=== PATIENT | male | born 1935 | race Caucasian/White ===

== ENCOUNTER → 2017-11-06 | Outpatient (CLI) | payer OTHER | END | disposition home or self-care (01) | LOC: PCVCIMAG 07:47 | DX: I10 Essential (primary) hypertension (principal); R00.2 Palpitations; C64.2 Malignant neoplasm of left kidney, except renal pelvis; E04.2 Nontoxic multinodular goiter; N32.89 Other specified disorders of bladder; Z87.891 Personal history of nicotine dependence; Z79.82 Long term (current) use of aspirin; Z79.899 Other long term (current) drug therapy | CPT/HCPCS: 76536; 76770; 80061; 93005; 93975; G0463 ==

== ENCOUNTER → 2017-11-27 | Outpatient (CLI) | payer OTHER | END | disposition home or self-care (01) | LOC: PCVCCLINIC 11:05 | DX: I10 Essential (primary) hypertension (principal); R00.2 Palpitations; C64.2 Malignant neoplasm of left kidney, except renal pelvis; E04.1 Nontoxic single thyroid nodule; N32.89 Other specified disorders of bladder; Z87.891 Personal history of nicotine dependence; Z79.899 Other long term (current) drug therapy; Z79.82 Long term (current) use of aspirin | CPT/HCPCS: 93005; G0463 ==